=== PATIENT | female | born 1950 | race Caucasian/White ===

== ENCOUNTER 2024-11-02 13:33 | Emergency (ER) | payer MEDICARE, BC, SELFPAY ==
--- OUTSIDE RECORDS SUMMARY | 2024-11-01 23:59 | XMS_ITS | Continuity of Care Document ---
Author Organization [facility] Address [address] [place] [address]- Care Team Providers Care Chief Crna Name Role Phone Jenniffer Ross MD Primary Care Physician Encounter [facility] Date(s): 10/25/24 - 11/01/24 [facility] [address] [place] [address]- Attending Physician: Jenniffer Ross MD Encounter Type: Office Visit Allergies, Adverse Reactions, Alerts Substance Criticality Severity Reaction Reaction Severity Status penicillins throat swelling Ac tive Other Environmental Allergy 1 Active metFORMIN Diarrhea Active CeleXA Active Cats Active Dogs Active Mold Maple tree material Allergy to cat dander Allergy to dog dander Active Zostavax Active 1multiple trees Immunizations Given and Recorded Vaccine Date Status Refusal Reason influenza virus vaccine, inactivated 01/05/24 [place] r[place] influenza virus vaccine, inactivated 12/13/22 [place] influenza virus vaccine, inactivated 12/06/21 [place] influenza virus vaccine, inactivated 12/06/21 [place] influenza virus vaccine, inactivated 11/20/20 [place] influenza virus vaccine, inactivated 11/06/19 [place] influenza virus vaccine, inactivated 1 12/11/17 Gi ann[facility]le influenza virus vaccine, inactivated 01/15/17 [facility] rded influenza virus vaccine, inactivated 12/27/16 [place] rded influenza virus vaccine, inactivated 2 12/25/15 Re corded influenza virus vaccine, inactivated 01/19/15 [place] r[place] SARS-CoV-2(COVID-19)mRNA-LNP vac([id number]) 01/05/24 Recorded RSV vaccine preF3, recombinant 3 12/13/22 Recorded RSV vaccine preF3, recombinant 12/13/22 Recorded SARS-CoV-2(COVID-19)mRNA-LNP vac([id number]) 12/13/22 Recorded [id number] 12y+ bivalent booster vax 12/06/21 Recorded [id number] 12y+ bivalent booster vax 12/06/21 Recorded SARS-CoV-2 (COVID-19) mRNA BNT-162b2 vac 06/12/21 Recorded SARS-CoV-2 (COVID-19) mRNA BNT-162b2 vac 12/10/20 Recorded SARS-CoV-2 (COVID-19) mRNA BNT-162b2 vac 05/23/20 Recorded SARS-CoV-2 (COVID-19) mRNA BNT-162b2 vac 04/30/20 Recorded Influenza Virus Vaccine (oldterm) 11/06/19 Recorde d Influenza Virus Vaccine (oldterm) 12/20/18 Recorde d tetanus/diphtheria/pertussis, acel(Tdap) 09/30/19 Recorded tetanus/diphtheria/pertussis, acel(Tdap) 04/26/07 Recorded tetanus-diphtheria toxoids (Td) 4 05/19/17 Given pneumococcal 23-valent vaccine 06/08/16 Given pneumococcal 13-valent vaccine 04/20/15 Given Zoster Vaccine Live 12/14/10 Recorded 1Result Comment: [12/11/2017] [id number] 2Location History: [facility] 3Result Comment: [facility] 4Result Comment: [05/19/2017] [id number] Medications azelastine 137 mcg/inh (0.1%) nasal spray See Instructions, 0 Refills, Maintenance, 01/01/24 9:43:00 AM EDT, Partial fill upon patient request if the prescription is for a schedule II opioid drug. Start Date: 01/01/24 Status: Ordered Repeat number: 1 Freestyle Reza 2 Freestyle Reza 2, See Instructions, # 1 each, Refills 3, Tot. Refills 3, Maintenance, Change sensor every 14 days as directed., 11/01/23 12:09:00 PM EDT, Please dispense 3 sensors for a full 30 day coverage, Supply, 158, cm, 10/02/23 7:42:00 EDT, Height, 60, kg, 06/07/22 8:31:00 EDT, Dry Weight Start Date: 11/01/23 Status: Ordered Quantity: 1.0 Unit: each Repeat number: 4 Indications: Type 2 diabetes mellitus without complications; Cramp and spasm; Otalgia, unspecified ear; Alcohol use, unspecified, uncomplicated; Anxiety disorder, unspecified; Essential (primary) hypertension; FreeStyle Reza 2 Sensors See Instructions, # 2 each, Refills 11, Tot. Refills 11, Maintenance, Please dispense Reza 2 PLUS sensors; use to check blood sugar 4 times daily; ICD: E11.9, 04/24/24 1:14:00 PM EST, Supply, 158, cm, 04/12/24 8:16:00 EST, Height, 60, kg, 06/07/22 8:31:00 EDT, Dry Weight Start Date: 04/24/24 Status: Ordered Quantity: 2.0 Unit: each Repeat number: 12 Insulin Lispro KwikPen 100 units/mL injectable solution = 4 units, Subcutaneous Infusion, Daily before dinner, # 15 mL, 1 Refills, Soft Stop, 06/19/24 4:04:00 PM EDT, [facility]/pharmacy #[id number], Partial fill upon patient request if the prescription is for a schedule II opioid drug., 158, cm, 04/12/24 8:16:00 EST, Height Start Date: 06/19/24 Status: Ordered Quantity: 15.0 Unit: mL Repeat number: 2 lisinopril 10 mg oral tablet 10 mg, 1, tablet, By Mouth, Daily, # 90 tablet, Refills 3, Tot. Refills 3, Maintenance, 10/25/24 8:20:00 AM EDT, Route to Pharmacy Electronically, [facility]/pharmacy #[id number], replaces lisinopril 5 mg, 158, cm, 10/25/24 7:51:00 EDT, Height Start Date: 10/25/24 Status: Ordered Quantity: 90.0 Unit: tablet Repeat number: 4 magnesium oxide 400 mg oral tablet 1 tablet = 400 mg, By Mouth, 2 times a day, # 90 tablet, 3 Refills, Maintenance, 10/25/24 8:20:00 AMEDT, Tablet, [facility]/pharmacy #[id number], Partial fill upon patient request if the prescription is for a schedule II opioid drug., 158, cm, 10/25/24 7:51:00 EDT, Height Start Date: 10/25/24 Status: Ordered Quantity: 90.0 Unit: tablet Repeat number: 4 multivitamin with minerals Calcium and Magnesium oral tablet 1 tablet, By Mouth, Daily, # 90 tablet, 1 Refills, Maintenance, 06/30/22 9:30:00 PM EDT, Tablet, [facility]/pharmacy #[id number], Partial fill upon patient request if the prescription is for a schedule II opioid drug. Rx resent from 05/17/21, 1 tablet By Mouth Daily, 158, cm, 06/21/22 11:44:00 EDT, Height, 60, kg,06/07/22 8:31:00 EDT, Dry Weight Start Date: 06/30/22 Status: Ordered Quantity: 90.0 Unit: tablet Repeat number: 2 Pen [employer], 32 G x 4 mm BD Ultra Fine III See instructions, # 300 each, Refills 2, Tot. Refills 2, Maintenance, use to inject three times daily for IDDM. E11.9 Use with insulin pen TID. Dispense 90 day prescription please., 08/28/24 1:42:00 PM EDT, 90 day Rx please., Compound, 158, cm, 07/25/24 9:19:00 EDT, Height Start Date: 08/28/24 Stop Date: 11/26/24 Status: Ordered Quantity: 300.0 Unit: each Repeat number: 3 Trulicity Pen 1.5 mg/0.5 mL subcutaneous solution 0.5 mL = 1.5 mg, Subcutaneous Injection, Every week, # 2.5 mL, 3 Refills, Maintenance, 07/25/24 9:41:00 AM EDT, Solution, [facility]/pharmacy #[id number], Partial fill upon patient request if the prescription is for a schedule II opioid drug., 158, cm, 07/25/24 9:19:00 EDT, Height Start Date: 07/25/24 Status: Ordered Quantity: 2.5 Unit: mL Repeat number: 4 Vitamin B1 100 mg oral tablet 100 mg, 1, tablet, By Mouth, Daily, # 90 tablet, Refills 3, Tot. Refills 3, Maintenance, 12/13/23 5:49:00 PM EDT, Route to Pharmacy Electronically, [facility]/pharmacy #[id number], Partial fill upon patient request if the prescription is for a schedule II opioid drug., 158, cm, 10/02/23 7:42:00 EDT, Height, 60, kg, 06/07/22 8:31:00 EDT, Dry Weight Start Date: 12/13/23 Status: Ordered Quantity: 90.0 Unit: tablet Repeat number: 4 Vitamin C By Mouth, Daily, 0 Refills, Maintenance, 04/03/23 10:09:00 AM EST, Partial fill upon patient requestif the prescription is for a schedule II opioid drug. Start Date: 04/03/23 Status: Ordered Repeat number: 1 Vitamin D3 1000 intl units oral tablet 1 tablet = 25 mcg, By Mouth, Daily, 0 Refills, Maintenance, 11/05/21 9:27:00 AM EDT, Partial fill upon patient request if the prescription is for a schedule II opioid drug. Start Date: 11/05/21 Status: Ordered Repeat number: 1 Problem List Condition Confirmation Course Effective Dates Status H ealth Status Informant Alcohol abuse Confirmed Active Allergic rhinitis Confirmed Active Anxiety Confirmed Active Caregiver stress Confirmed Active Breast cyst Confirmed Active Tongue disorder Confirmed Active Essential hypertension Confirmed Active GERD (gastroesophageal reflux disease) Confirmed Active Hyperlipidemia Confirmed Active Insomnia Confirmed Active Diabetes mellitus type 2, insulin dependent Confirmed Active Degenerative arthritis Confirmed Active Colon polyps 1 Confirmed Active Recurrent genital HSV (herpes simplex virus) infection Confirmed Active Tendonitis Confirmed Active Vitamin D deficiency Confirmed Active 1Will need repeat colonoscopy in 2017 Social History Social History Type Response Smoking Status Never smoker; Tobacc o user in household: No entered on: 10/28/13 Sex Sex Representation Female (finding) Note * Tesha Houser: PERFORM Event Display: Patient Education/Instruction Authored Date: [id number] Ambulatory Adult Visit Summary [address] [address] Name: SUJIT MORENO : 1950?? Visit: 10/25/2024 07:33?? Ambulatory Visit Instructions ?? Your Care Team Primary Care Provider Jenniffer Ross MD? This Visit Provider Jenniffer Ross MD Your Diagnosis Major depressive disorder, recurrent, in partial remission Hyperlipidemia Essential hypertension Caregiver stress Diabetes mellitus type 2, insulin dependent Vitals Signs Pulse Rate: 89 bpm Height: 158 cm Systolic Blood Pressure: 135 mm Hg Weight: 54.2 kg Diastolic Blood Pressure: 65 mm Hg Body Mass Index: 21.71 kg/m2 Oxygen Saturation: 100 % Body surface area: 1.54 What to do next Scheduled Follow-Up Appointments 2024 10:00 AM EDT ?? Where: [address] [address]- Status: Pending Monday 7:40 AM EST ?? With: Cody FAJARDO, Jenniffer De Paz Where: [address] [address]- Status: Pending Follow-Up Appointments Follow up Appointment - Ordered?-- 3 months, follow up DM htn lipids ??stress, 10/25/24 8:24:00 EDT Future Orders Microalbumin Urine - Routine, Once, 10/25/24 7:53:00 EDT, Order for Today, [facility], Urine?? Comprehensive Metabolic Panel - Routine, Once, 10/25/24 8:21:00 EDT, Order for Today, [facility], Blood?? Hemoglobin A1C (Monitoring) - Routine, Once, 10/25/24 8:21:00 EDT, Order for Today, [facility], Blood?? Lipid Panel - Routine, Once, 10/25/24 8:21:00 EDT, Order for Today, [facility], Blood?? TSH Rfx on Abnormal to Free T4 - Routine, Once, 10/25/24 8:22:00 EDT, Order for Today, [facility], Blood?? Medications The list below reflects the information in our records and provided by you today along with any changes made during this visit. Please continue your medications until treatment is completed or stopped by your provider. If this is different from the information you have or there are other questions,please contact the prescribing provider. What How Much When Why Instructions Unchanged Ascorbic Acid (Vitamin C) Oral Daily Unchanged Azelastine Nasal (azelastine 137 mcg/ inh (0.1%) nasal spray) See instructions Unchanged Cholecalciferol (Vitamin D3 1000 intl units oral tablet) 1 tab(s) Oral Daily Unchanged dulaglutide (Trulicity Pen 1.5 mg/ 0.5 mL subcutaneous solution) 0.5 Milliliter Subcutaneous Injection Every week Unchanged Durable Medical Equipment (FreeStyle Reza 2 Sensors) See instructions Please dispense Reza 2 PLUS sensors; use to check blood sugar 4 times daily; ICD: E11.9 ?? Unchanged Durable Medical Equipment (Freestyle Reza 2) See instructions Diabetes mellitus type 2, insulin dependent Essential hypertension Anxiety Alcohol use disorder Ear pain Leg cramps Change sensor every 14 days as directed. ?? Unchanged Durable Medical Equipment (Pen [employer], 32 G x 4 mm BD Ultra Fine III) See instructions Duration: 30 Days use to inject three times daily for IDDM. E11.9 Use with insulin pen TID. Dispense 90 day prescription please. ?? Unchanged Insulin Lispro (Insulin Lispro KwikPen 100 units/ mL injectable solution) 4 unit(s) Subcutaneous Infusion Daily before dinner Unchanged Lisinopril (lisinopril 10 mg oral tablet) 1 tab(s) Oral Daily Pickup at [facility]/pharmacy #[id number] Unchanged Magnesium Oxide (magnesium oxide 400 mg oral tablet) 1 tab(s) Oral Twice a day Pickup at [facility]/pharmacy #[id number] Unchanged Multivitamin With Minerals (multivitamin with minerals Calcium and Magnesium oral tablet) 1 tab(s) Oral Daily Unchanged Thiamine (Vitamin B1 100 mg oral tablet) 1 tab(s) Oral Daily Pharmacy Information [facility]/pharmacy #[id number]: [address], [place] [id number] [phone] Test Performed Below is a partial list of the tests performed during your Visit. You may have had other tests and procedures not included in this list. Please discuss all test results with your provider. Comprehensive Metabolic Panel?-- Results Pending -- Hemoglobin A1C (Monitoring)?-- Results Pending -- Lipid Panel?-- Results Pending -- Microalbumin Urine?-- Results Pending -- TSH Rfx on Abnormal to Free T4?-- Results Pending -- Medications and Immunizations Administered Medications Given During Visit No medications given during this visit.?? Allergies (NKA means No Known Allergies) Cats CeleXA Dogs Mold??(Maple tree material, Allergy to cat dander, Allergy to dog dander) Other Environmental Allergy Zostavax metFORMIN??(Diarrhea) penicillins??(throat swelling) Common Emergency Awareness Tips IS IT A STROKE? Act FAST and Check for these signs: FACE Does the face look uneven? ARM Does one arm drift down? SPEECH Does their speech sound strange? TIME Call at any sign of stroke ?? Heart Attack Signs Chest discomfort: Most heart attacks involve discomfort in the center of the chest and lasts more than a few minutes, or goes away and comes back. It can feel like uncomfortable pressure, squeezing, fullness or pain. Discomfort in upper body: Symptoms can include pain or discomfort in one or both arms, back, neck, jaw or stomach. Shortness of breath: With or without discomfort. Other signs: Breaking out in a cold sweat, nausea, or lightheaded. Remember, MINUTES DO MATTER. If you experience any of these heart attack warning signs, call to get immediate medical attention! ?? Smoking can increase your chances of developing chronic health problems and can cause harmful effects to other family members in your house. If you smoke, you are strongly encouraged to quit. Please call [facility] at [phone] or [phone] ([phone]) or log in to [email or web address] for referrals to smoking cessation programs. ?? The National Suicide Prevention Hotline is available 03/10 if you or someone you know needs to find a reason to keep living. By calling 9-474-410-Lift (7847) you'll be connected to a skilled, trained counselor at a crisis center in your area. [facility] [employer] Portal You can view and manage your care through the patient portal or by using a health care bairon of your choosing. [facility] is a website that allows you to securely view your medical information including your hospital discharge summary, office visit summaries, medications and follow-up visits. You can also request appointments, renew medications, and request access to your medical information using a health care bairon of your choosing, or just ask a question. You can enroll at [email or web address] or register during your next office visit. [facility], in keeping with [facility] guidance, no longer requires face masks for staff, patientsor visitors in most situations. Similiar to time spent indoors at other locations, there is the chance that you were exposed to repiratory viruses during your time with us (such as flu or COVID-19). If you develop symptoms concerning for a viral respiratory infection, please seek testing (and treatment if indicated) from your medical provider or home test kit. ?? Disclaimer: The information provided is of a general nature and is intended to be used in conjunction with the recommendations and advice of your health care practitioner. Every effort has been made to ensure that the information provided is accurate and complete at the time it is provided to you however, as your needs change, or, as new information becomes available, different or additional instructions may be required. ?? If you have questions, please consult with your primary care provider or pharmacist, as appropriate. This information is not intended to serve as substitution for assessment and evaluation by a qualified health care provider. If you do not have a primary care provider, you may find a [facility] provider by calling [facility] [employer] [facility] at [phone]. Patient Care team information Care Team Personnel Name: Felipe Mejia RN Position: [facility] RN Member Role: Primary Care Nurse Name: Jenniffer Ross MD Position: [facility] Physician - Primary Care Member Role: PCP Address: [address] [place] [address] Telecom: Care Team Related Persons Name: SUDHA MORENO Name: JU MORENO Insurance Providers Guarantor name: SUJIT MORENO Health Plan Information #: 1 Payer: MEDICARE B Payer Identifier: NA Member Number: [id number] Group Number: [id number] Subscriber Identifier: [id number] Relationship to Subscriber: self Coverage Type: NA Coverage Verification Date: NA Telecom: NA Address: NA Health Plan Information #: [address] [facility] Payer Identifier: NA Member Number: [id number] Group Number: [id number] Subscriber Identifier: [id number] Relationship to Subscriber: self Coverage Type: Medicare Other Coverage Verification Date: NA Telecom: NA Address:
--- NOTE | ~2024-11-02 | XR_ITS ---
CLINICAL HISTORY: lact to distal left thumb 3 views left thumb including PA hand Comparison: None Findings: No fracture subluxations or dislocations. Ulnar minus variant. Degenerative changes involving the trapezium trapezoid scaphoid complex. Joint intervals are preserved. 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 Mild degenerative changes with joint space narrowing and spurring the 1st interphalangeal joint. No radiopaque foreign body. Normal bone mineralization and soft tissues Impression: 1. No acute osseous abnormality This document has been electronically signed by: Carlos Kent MD on 11/02/2024 14:48:12
--- NOTE | 2024-11-02 13:44 | ED.SKABFB ---
HPI - Skin/Abscess/Foreign Bdy General Chief complaint: Wound/Laceration Stated complaint: laceration on left thumb Time Seen by Provider: 11/02/24 13:46 Source: patient Mode of arrival: ambulatory Limitations: no limitations History of Present Illness ED Provider: BARBARA PEREZ PA-C HPI narrative: 74 year old right hand dominant female with PMHX significant for DM presents to the ED today for evaluation of laceration to left thumb sustained while gardening with pruning rudi. Are immediately began bleeding, applied a paper towel and came to the ED for further eval. No AC. No dificulty moving the left thumb. No nail involvement. No other injury. Tetanus UTD (2019). Related Data Allergies Allergy/AdvReac Type Severity Reaction Status Date / Time Penicillins (PENICILLINS) Allergy Unknown SWELLING Verified 11/02/24 13:47 Review of Systems Review of Systems: Yes all other systems are reviewed and are negative PMFSH Past Medical History Attestation statement: The following information was validated with the patient. Source: old records reviewed and nursing notes reviewed Social History Social History Advance Directives: No Advance Directives Information Provided: Yes Physical Exam Vital Signs: Vital Signs: Last Vital Signs Temp 98.0 F 11/02/24 13:45 Pulse 107 H 11/02/24 13:45 Resp 16 11/02/24 13:45 BP 157/72 H 11/02/24 13:45 Pulse Ox 97 11/02/24 13:45 O2 Del Method Room Air 11/02/24 13:45 BMI result Body Mass Index 21.4 hypertensive, tachycardic General: Well appearing, in no acute distress. Skin: +2 cm linear laceration noted to finger pad of left thumb, bleeding controlled, no involvement of deeper structures, no retained FB Head: Normocephalic, atraumatic. EENT: Hearing is intact b/l. Conjunctiva clear. PERRLA. EOM intact. Moist mucous membranes.? Cardiac: Chest wall symmetric. RRR Lungs: Normal respiratory effort without accessory muscle use. CTA bilaterally Back: No midline spinous or paraspinal tenderness. No step off deformity. Ext: +FROM intact to L thumb, finger strength intact, sensation intact, finger to thumb opposition intact Neuro: AOx3. Normal speech. Ambulating with steady gait. Medications Administered Discontinued Medications Generic Name Dose Route Start Last Admin Trade Name Freq PRN Reason Stop Dose Admin Lidocaine HCl 10 ml 11/02/24 13:48 11/02/24 14:08 Lidocaine Hcl 1 % Mpf 5 Ml Vial INFILTRATI 11/02/24 13:49 10 ml ONCE ONE Administration Medical Decision Making Medical Decision Making MDM Narrative: 74 year old right hand dominant female with PMHX significant for DM presents to the ED today for evaluation of laceration to left thumb sustained while gardening with pruning rudi. on exam, 2 cm linear laceration noted to finger pad of left thumb, bleeding controlled, no involvement of deeper structures, no retained FB. FROM intact to L thumb, finger strength intact, sensation intact, finger to thumb opposition intact Differential diagnosis includes laceration, abrasion. unlikely ligament/tendon injury, fracture. Plan for xrs, lac repair, re-eval. Differential Diagnosis Differential Diagnoses: The differential diagnosis associated with the presentation includes as above. Admission/Observation not indicated. Independent Interpretation I performed an independent interpretation of an: Plain X-Ray Interpretation: xr left thumb without osseous injury Radiology Impression Discussion of test interpretation with radiology: I have reviewed the radiologist's reading. Radiologist Impression: Date of Service: 11/02/24 Procedure(s): XR finger LT min 2V Accession Number(s): [id number] cc: Barbara Perez; Jenniffer Ross MD~ CLINICAL HISTORY: lact to distal left thumb 3 views left thumb including PA hand Comparison: None Findings: No fracture subluxations or dislocations. Ulnar minus variant. Degenerative changes involving the trapezium trapezoid scaphoid complex. Joint intervals are preserved. 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 Mild degenerative changes with joint space narrowing and spurring the 1st interphalangeal joint. No radiopaque foreign body. Normal bone mineralization and soft tissues Impression: 1. No acute osseous abnormality This document has been electronically signed by: Carlos Kent MD on 11/02/2024 14:48:12 Independent Historian Clinical information obtained from an independent historian. History obtained from or confirmed by: Other (son) Prescription Management I considered prescription management with: Pain Medication Social Determinants Patient?s care significantly limited by Social Determinants of Health including: Other Social Determinant of Health Procedures Laceration Laceration 1: Site: hand (thumb) Side (If applicable): left Size (cm): 2 Description: linear Depth: simple, single layer Local Anesthetic: lidocaine 1% Amount of anesthesia used (mL): 10 Pre-repair: wound explored and irrigated extensively Skin layer closed with: nylon Size (cm): 3-0 Number of sutures: 6 Technique: simple, interrupted Nerve Block Nerve Block 1: Time out performed: Yes Local Anesthetic: lidocaine 1% Amount of anesthesia used (mL): 10 Side: left Nerve Blocks: digital Procedure Successful: Yes Patient Tolerated Procedure: well Complications: none Critical Care Time Critical Care Time Critical Care Time: No Discharge Plan Discharge Clinical Impression: Laceration of thumb Patient Disposition: Home, Self-Care Instructions: Laceration (ED) Additional Instructions: You have been evaluated in the Emergency Department today for a laceration to your left thumb. Your laceration was repaired in the ED with 6 sutures.? Your tetanus vaccination is UTD as of 2019. The xrays of your left thumb do not reveal fracture. Please keep the area surrounding the laceration clean and dry. Do not get the area wet for 24 hours. After 24 hours, you may clean the area with a non-scented soap and pat to dry. Please keep the area out of the sunlight for the next 6 months to help prevent scarring.? If you develop redness or swelling at the site of your laceration or note any discharge/ fluid coming from the laceration, please come back to the ER for a wound check. I recommend you take 600mg ibuprofen every 6 hours or tylenol 650mg every 6 hours as needed for pain. If needed, you can alternate these medications so that you take one medication every 3 hours. For example, at noon take ibuprofen, then at 3pm take tylenol, then at 6pm take ibuprofen. Please follow up with your primary care physician in 7-10 days for suture removal. You may also return to the ER or another urgent care facility for this service. Return to the Emergency Department if you experience discharge from your laceration, redness around your laceration, warmth around your laceration, fever, vomiting, numbness, tingling, or any other concerning symptoms. In the case of an emergency call 911. Referrals: Jenniffer Ross MD [Primary Care Provider, Internal Medicine] Interventions: ED Discharge Assessment Last Done: 11/02/24 15:08 Discharge Date/Time: 11/02/24 15:09 Print Language: Sri Lankan
[2024-11-02 13:45] VITALS: BP 157/72; PULSE 107; RESP 16; TEMP 36.7; O2SAT 97; BMI 21.4
--- OUTSIDE RECORDS SUMMARY | 2024-11-02 14:01 | XMS_ITS | Continuity of Care Document ---
Author Name [facility] Organization [facility] Care Team Providers Care Supervisor Cook Room Name Role Phone [facility] Unavailable Unavailable Problems Combined list of problems from Department of Defense and Veterans Affairs facilities. It does not include entries that were removed or entered in error. Problem Status Onset Date Problem Type Date of Resolution Comments Source Diagnosis: ICD-10-CM Z73.3 Stress, not elsewhere classified Active Diagnosis [facility] (6[facility]) Encounters Combined list of: 1) Encounters from Department of Veterans Affairs facilities going backup to the last 18 months, not all [place] inpatient encounters are included; 2) Encounters from the Department of Defense facilities going backup to 280 months. Location Location Details Encounter Type Encounter Number Reason For Visit Attending Provider ADM Date DC Date Status Disposition Source [place] [facility] [place] ADDL [id number] Diagnos is: ICD-10- CM Z73.3 Stress, not elsewhe re classif ied MALINOFSKY ,AUBREY 10/05 [place] [facility] [place] [id number] Diagnos is: ICD-10- CM Z73.3 Stress, not elsewhe re classif ied MALINOFSKY ,AUBREY 10/26 [facility] (631GE) [facility] (6[facility]) [facility] [place]DL [id number] Diagnos is: ICD-10- CM Z73.3 Stress, not elsewhe re classif ied MALINOFSKY ,AUBREY 11/23 [facility] (631GE) [facility] (631GE) [facility] IVNTJ INDIV 1ST 30 [id number] Diagnos is: ICD-10- CM Z73.3 Stress, not elsewhe re classif ied MALINOFSKY ,AUBREY 12/21 [facility] (631GE) [facility] (6[facility]) [facility] [place] ADDL [id number] 1GE. 12 Diagnos is: ICD-10- CM Z73.3 Stress, not elsewhe re classif ied MALINOFSKY ,AUBREY 01/04 [facility] (631GE) [facility] (6[facility]) [facility] [place] ADDL [id number] 1GE. Diagnos is: ICD-10- CM Z73.3 Stress, not elsewhe re classif ied MALINOFSKY ,AUBREY 02/01 [facility] (631GE) [facility] (6[facility]) [facility] INDIV EA ADDL [id number] 1GE. 12 Diagnos is: ICD-10- CM Z73.3 Stress, not elsewhe re classif ied MALINOFSKY ,AUBREY 03/01 [facility] (631GE) [facility] (6[facility]GE) [facility] INDIV EA ADDL [id number] 1GE. 57 Diagnos is: ICD-10- CM Z73.3 Stress, not elsewhe re classif ied MALINOFSKY ,AUBREY 04/05 [facility] (631GE) [facility] (631GE) TH V IVNTJ INDIV EA ADDL [id number] Diagnos is: ICD-10- CM Z73.3 Stress, not elsewhe re classif ied MALINOFSKY ,AUBREY 05/10 [facility] (631GE) [facility] (631GE) TH V IVNTJ INDIV EA ADDL [id number] Diagnos is: ICD-10- CM Z73.3 Stress, not elsewhe re classif ied MALINOFSKY ,AUBREY 06/07 [facility] (631GE) [facility] (631GE) [facility] IVNTJ INDIV EA ADDL [id number] 1GE. 35 Diagnos is: ICD-10- CM Z73.3 Stress, not elsewhe re classif ied MALINOFSKY ,AUBREY 07/05 [facility] (631GE) [facility] (631GE) [facility] IVNTJ INDIV EA ADDL [id number] Diagnos is: ICD-10- CM Z73.3 Stress, not elsewhe re classif ied MALINOFSKY ,AUBREY 08/16 [facility] (631GE) [facility] (631GE) [facility] IVNTJ INDIV EA ADDL [id number] Diagnos is: ICD-10- CM Z73.3 Stress, not elsewhe re classif ied MALINOFSKY ,AUBREY 10/08 [facility] (631GE) Social History Combined list of available smoking, tobacco, and other social history from Department of Defense and Veterans Affairs facilities. Social History Type Response Date Comment [facility] e This section is an empty social history section. DoD
[2024-11-02] MEDS: Lidocaine HCl 1 % MPF 5 ML VIAL 10 ML INFILTRATI (14:08)
[2024-11-02 15:08] VITALS: BP 157/72; PULSE 107; RESP 16; TEMP 36.7; O2SAT 97
== END 2024-11-02 15:09 | disposition home or self-care (01) ==
PROVIDERS: Emergency Provider Emergency Medicine; PCP Family Medicine
DX: S61.012A Laceration without foreign body of left thumb without damage to nail, initial encounter (principal); M79.645 Pain in left finger(s); W26.9XXA Contact with unspecified sharp object(s), initial encounter; Y93.9 Activity, unspecified; Y92.9 Unspecified place or not applicable; Y99.8 Other external cause status
CPT/HCPCS: 12001; 64450; 73140; 99282; 99284; J2003